=== PATIENT | male | born 2000 ===

== ENCOUNTER 2024-05-17 11:48 | Emergency (ER) | payer SELFPAY ==
[2024-05-17 11:56] VITALS: BP 117/79
[2024-05-17 12:24] LABS: % Basophils 1.4 % (0-2); % Eosinophils 5.2 % (0-6); % Immature Granulocytes 1.8 % (0-0.5); % Lymphocytes 27.2 % (20.5-51.1); % Monocytes 6.7 % (1.7-9.3); % Neutrophils 57.7 % (42.2-75.2); Absolute Basophils 0.1 10^3/uL (0-0.2); Absolute Eosinophils 0.5 10^3/uL (0-0.7); Absolute Immature Granulocytes 0.2 10^3/uL (0-0.05); Absolute Lymphocytes 2.5 10^3/uL (1.2-3.4); Absolute Monocytes 0.6 10^3/uL (0.1-0.6); Absolute Neutrophils 5.4 10^3/uL (1.4-6.5); Hematocrit 45.1 % (39.0-52.0); Hemoglobin 15.8 g/dL (13.0-18.0); Mean Corpuscular Hgb 29.2 pg (27.0-31.0); Mean Corpuscular Volume 83.2 fL (80.0-94.0); Mean Platelet Volume 10.8 fL (7.4-10.4); Nucleated Red Blood Cells % 0 % (-); Platelet Count 244 10^3/uL (130-400); Red Blood Cell Count 5.42 10^6/uL (4.70-6.10); Red Cell Dist. Width 12.8 % (11.5-14.5); White Blood Cell Count 9.3 10^3/uL (4.8-10.8)
[2024-05-17 12:25] LABS: Urine Albumin Negative (Neg - Trace); Urine Bilirubin Negative (Negative); Urine Character Clear (Clear); Urine Color Yellow; Urine Glucose Negative (Negative); Urine Ketone Negative (Negative); Urine Leukocyte Negative (Negative); Urine Nitrite Negative (Negative); Urine Occult Blood Negative (Negative); Urine Specific Gravity 1.015 (<1.030); Urine Urobilinogen Negative (Neg - 1+); Urine pH 6.5 (5.0-9.0)
--- NOTE | 2024-05-17 12:30 | ED.GENMED ---
History of Present Illness
General
Chief Complaint: Flank Pain
Source: patient and band machine operator
Time Seen by Provider: 05/17/24 12:08
History of Present Illness
History of Present Illness:
23yoM with no significant past medical history presenting for evaluation of flank pain. Patient is Nigerian-speaking and an band machine operator is used to obtain history. He initially started with R sided flank pain yesterday. Pain radiates to the RLQ. He
noticed a small amount of blood this morning and he passed what he thinks was a small stone around 6am this morning. He continues to have flank pain so decided to come to the ED. He denies any fevers or vomiting. No prior history of stones.
Phy Exam
General Physical Exam
General Presentation: well appearing and no apparent distress
General age: appears stated age
General Skin: warm and dry
General Habitus: normal
General Mental: alert
Pulmonary Exam
Pulmonary Exam: no respiratory distress
Gastrointestinal Exam
Gastrointestinal Exam: soft, non distended and no cva tenderness
Palpation: right upper quadrant: Mild tenderness
Skin Exam
Skin Exam: normal color and warm/dry
Psychiatric Exam
Psychiatric Exam: normal mood/affect
Course
Orders/Labs/Results
Orders:
Orders
05/17/24 12:11
CMP [Comprehensive Metabolic Panel] Urgent
Complete Blood Count/With Diff Urgent
Urinalysis Reflex To Culture Urgent
Date Specimen was Collected: 05/17/24
Time Specimen was Collected: 11:58
05/17/24 12:30
CT Abd/pel Without Iv Or Oral Urgent
Comment:
Reason For Exam: R flank pain
Ketorolac [Toradol] 30 mg IM NOW STA
Abnormal Lab Results
05/17/24
12:11
MPV 10.8 H fL
(7.4-10.4)
Abs Immat Gran (auto) 0.2 H 10^3/uL
(0-0.05)
Immature Gran % 1.8 H %
(0-0.5)
Total Bilirubin 1.5 H mg/dl
(0.2-1.3)
ALT 119 H U/L
(0-50)
05/17/24 12:11
05/17/24 12:11
Vital Signs
Initial and Last Documented VS:
Initial Vital Signs
Temp Pulse Resp BP Pulse Ox
98.7 F 78 16 117/79 98
05/17/24 11:56 05/17/24 11:56 05/17/24 11:56 05/17/24 11:56 05/17/24 11:56
Last Documented Vital Signs
Temp Pulse Resp BP Pulse Ox
98.7 F 72 17 128/68 97
05/17/24 11:56 05/17/24 14:00 05/17/24 14:00 05/17/24 14:00 05/17/24 14:00
MDM/Problems Addressed
Differential Diagnosis Includes:
23yoM here with R flank pain since yesterday. Noted hematuria and a passed stone this morning. Still c/o R flank pain. No fevers or vomiting. He is well appearing in no distress. He is afebrile and hemodynamically stable. There is RUQ tenderness on
abdominal exam without signs of peritonitis. Differential diagnosis includes but is not limited to: kidney stone, UTI, pyelonephritis, cholecystitis
Initial ED plan: Check CBC, CMP, UA, and CT abdomen. IM Toradol for pain.
*Critical Care Note
Total Time (30-74mins, 75-104mins- exclusive of procedures): Not Applicable
Update Note
Update Note:
Labs overall unremarkable including normal white count and renal function. UA bland without hematuria or signs of infection. CT abdomen is negative for acute findings. Patient feeling improved on reassessment. Suspect that patient passed stone prior
to arrival. He is stable for discharge. Advised f/u with PCP and ED return precautions discussed. He was discharged in stable condition.
ED Attending Note
-
Portions of this chart may have been created with voice recognition software.� Occasional wrong word or��sound alike� substitutions may have occurred due to the inherent limitations of voice recognition software.
Discharge Plan
Departure
Patient Disposition: Home (Routine Discharge)
Date of Disposition: 05/17/24
Time of Disposition: 14:14
Patient with high blood pressure during this ER visit?: No
Discharge Problem:
Acute right flank pain
Instructions: Flank Pain (DC)
Referrals:
[facility] [Outside]
NONE,* [Family Provider] -
Activity Restrictions/Additional Instructions:
Take Tylenol and ibuprofen for pain. Drink plenty of fluids and hydrate.
Please follow-up with your family doctor. Return to the ER with any worsening symptoms or fevers.
Interventions
Interventions:
*Risk Screen - Suicide Last Done: 05/17/24 12:18
*General Assessment Last Done: 05/17/24 12:18
*Neglect/Abuse Screening Last Done: 05/17/24 12:18
*ED COVID-19 Vaccine History Last Done: 05/17/24 12:18
*Nursing Disposition Last Done: 05/17/24 14:43
GZ-Irrfuz-Qzhujxnybf Assessment Last Done: 05/17/24 12:18
ED-Male Genitourinary Assessment Last Done: 05/17/24 12:18
Discharge Date and Time
Discharge Date/Time: 05/17/24 14:43
Print Language: MARSHALLESE
[2024-05-17] MEDS: TORADOL 30 MG IM (12:39)
[2024-05-17 12:41] LABS: ALT (SGPT) 119 U/L (0-50); AST (SGOT) 58 U/L (17-59); Albumin 4.1 g/dl (3.5-5.0); Alkaline Phosphatase 71 U/L (38-126); Blood Urea Nitrogen 13 mg/dl (9-20); Calcium 9.2 mg/dl (8.4-10.2); Carbon Dioxide 23 mmol/L (22-30); Chloride 106 mmol/L (98-107); Glucose 98 mg/dl (70-99); Potassium 4.4 mmol/L (3.5-5.1); Sodium 136 mmol/L (135-145); Total Bilirubin 1.5 mg/dl (0.2-1.3); Total Protein 6.8 g/dl (6.3-8.2); eGFR > 60.00
[2024-05-17 14:00] VITALS: BP 128/68
== END 2024-05-17 14:43 | disposition home or self-care (01) ==
LOC: EMR 11:48
PROVIDERS: EMERGENCY PHYSICIAN Emergency Medicine
DX: R10.9 Unspecified abdominal pain (principal)
CPT/HCPCS: 99284; 96372; 74176; 80053; 81003; 85025

== ENCOUNTER 2024-11-28 02:27 | Emergency (ER) | payer SELFPAY ==
[2024-11-28 02:35] VITALS: BP 144/94
[2024-11-28 07:10] VITALS: BP 128/85
--- NOTE | 2024-11-28 07:21 | ED.GENMED ---
History of Present Illness
General
Chief Complaint: Eye Problems
Source: patient
Exam Limitations: none
Time Seen by Provider: 11/28/24 07:02
History of Present Illness
History of Present Illness:
23yoM with no significant past medical history presenting for evaluation of a foreign body sensation of the right eye. Patient is [place] speaking and history is obtained with the assistance of a phone pest control technician. Patient was at work yesterday
afternoon. He walked next to a car that was being built and a piece of hot metal flew into the air. He believes it struck his right eye. He flushed his eye and felt better but the burning pain came back after taking a shower. He reports foreign body
sensation, redness, and tearing. He feels his vision is a little blurry from the tearing. He does not use contact lenses or glasses.
Phy Exam
General Physical Exam
General Presentation: well appearing and no apparent distress
General age: appears stated age
General Skin: warm and dry
General Habitus: normal
General Mental: alert
General Hydration: appears well hydrated
ENT Exam
ENT Exam: normocephalic
Eye Exam
Eye Exam: PERRL, EOMI and other (R conjunctival injection noted with tearing. PERRL. EOMs intact. Visual acuity 20/10 bilaterally. There is a circular foreign body noted at the 7:00 position of the iris. No other FB visualized. Negative Galdino sign.)
Right 20/: 10
Left 20/: 10
Neurological Exam
Neurological Exam: alert
[place] Coma Scale
Eye Opening: Spontaneous
Verbal Response: Oriented
Motor Response: Obeys Commands
GCS Total Score: 15
Skin Exam
Skin Exam: normal color and warm/dry
Psychiatric Exam
Psychiatric Exam: normal mood/affect
Course
Orders/Labs/Results
Orders:
Orders
11/28/24 07:20
Visual Acuity- Treatment ONCE
Erythromycin (Ilotycin) [Erythromycin 0.5% Ophthalmic Ointment] See Dose Instructions OPHTH NOW STA
11/28/24 07:21
Erythromycin (Ilotycin) [Erythromycin 0.5% Ophthalmic Ointment] See Dose Instructions OPHTH NOW STA
11/28/24 08:16
Fluorescein Sodium [Ful-Evelyn] 1 mg .ROUTE .STK-MED ONE
Purified Water Eye Wash [Dacriose Eye Wash Solution] 120 ml .ROUTE .STK-MED ONE
Tetracaine HCl [Tetracaine 0.5% Ophthalmic Solution] 1 drop .ROUTE .STK-MED ONE
Vital Signs
Initial and Last Documented VS:
Initial Vital Signs
Temp Pulse Resp BP Pulse Ox
98.1 F 68 18 144/94 98
11/28/24 02:35 11/28/24 02:35 11/28/24 02:35 11/28/24 02:35 11/28/24 02:35
Last Documented Vital Signs
Temp Pulse Resp BP Pulse Ox
98.1 F 77 20 128/85 99
11/28/24 02:35 11/28/24 08:00 11/28/24 08:00 11/28/24 08:00 11/28/24 08:00
MDM/Problems Addressed
Differential Diagnosis Includes:
23yoM here with a foreign body sensation of R eye. Believes he has a piece of metal stuck in the eye. Differential diagnosis includes eye foreign body vs. corneal abrasion
Conjunctiva is injected on exam. There is a circular foreign body visualized at the 7:00 position of the iris with fluorescein stain. Eye was irrigated with eye wash and cotton tip used to remove foreign body. Defect in the cornea noted where the
FB was removed. No other obvious foreign bodies. He was started on erythromycin ointment. Advised f/u with ophthalmology for repeat exam. ED return precautions discussed. He was discharged in stable condition.
*Critical Care Note
Total Time (30-74mins, 75-104mins- exclusive of procedures): Not Applicable
ED Attending Note
-
Portions of this chart may have been created with voice recognition software.� Occasional wrong word or��sound alike� substitutions may have occurred due to the inherent limitations of voice recognition software.
Discharge Plan
Departure
Patient Disposition: Home (Routine Discharge)
Date of Disposition: 11/28/24
Time of Disposition: 07:24
Patient with high blood pressure during this ER visit?: Yes
Discharge Problem:
Foreign body of right eye
Instructions: Foreign Body in Eye (DC)
Prescriptions:
New
erythromycin 5 mg/gram (0.5 %) ointment
0.5 inch RIGHT EYE QID 7 Days Qty: 3.5 0RF
Referrals:
Adam Casey MD [Active] -
Activity Restrictions/Additional Instructions:
Apply erythromycin ointment as prescribed. Take Tylenol and ibuprofen as needed for pain.
Please call today to schedule a follow-up with an eye doctor in the next 2-3 days. Return to the ER with any worsening symptoms.
Interventions
Interventions:
*Risk Screen - Suicide Last Done: 11/28/24 02:35
*General Assessment Last Done: 11/28/24 06:20
*Neglect/Abuse Screening Last Done: 11/28/24 02:35
ED- Fall Risk Assessment Last Done: 11/28/24 06:20
*ED COVID-19 Vaccine History Last Done: 11/28/24 06:20
*Nursing Disposition Last Done: 11/28/24 08:31
Discharge Date and Time
Discharge Date/Time: 11/28/24 08:31
Print Language: [email or web address]
[2024-11-28 08:00] VITALS: BP 128/85
[2024-11-28] MEDS: ERYTHROMYCIN 0.5% OPHTHALMIC OINTMENT 1 APPLIC OPHTH (08:08)
== END 2024-11-28 08:31 | disposition home or self-care (01) ==
LOC: EMR 02:27
PROVIDERS: EMERGENCY PHYSICIAN Emergency Medicine
DX: T15.91XA Foreign body on external eye, part unspecified, right eye, initial encounter (principal); W44.9XXA Unspecified foreign body entering into or through a natural orifice, initial encounter
CPT/HCPCS: 99283